=== PATIENT | male | born 1940 | race Caucasian/White ===

== ENCOUNTER 2020-06-12 07:06 | Day surgery (SDC) | payer MEDICARE, BC ==
[2020-06-06 10:16] LABS: BASOPHILS % (AUTO) 0.7 % (0-1); EOSINOPHILS # (AUTO) 0.1 X10'3 (0-0.9); EOSINOPHILS % (AUTO) 1.3 % (0-6); LYMPHOCYTES # (AUTO) 0.9 X10'3 (1.1-4.8); LYMPHOCYTES % (AUTO) 17.3 % (21-51); MEAN CORPUSCULAR HEMOGLOBIN 29.6 PG (27.0-31.0); MEAN CORPUSCULAR HGB CONC 32.7 g/dL (33.0-36.5); MEAN CORPUSCULAR VOLUME 90.4 FL (78-98); MEAN PLATELET VOLUME 7.7 FL (7.4-10.4); MONOCYTES # (AUTO) 0.7 X10'3 (0-0.9); MONOCYTES % (AUTO) 13.1 % (2-12); NEUTROPHILS # (AUTO) 3.5 X10'3 (1.8-7.7); NEUTROPHILS % (AUTO) 67.6 % (42-75); PRE OP HEMATOCRIT 38.8 % (42.0-52.0); PRE OP HEMOGLOBIN 12.7 g/dL (14.0-17.9); PRE OP PLATELET COUNT 171 X10'3 (140-440); RED BLOOD COUNT 4.29 X10'6 (4.70-6.10); RED CELL DISTRIBUTION WIDTH 17.6 % (11.5-14.5)
[2020-06-06 10:23] LABS: ALBUMIN 3.8 G/DL (3.4-5.0); ALKALINE PHOSPHATASE 132 IU/L (46-116); BLOOD UREA NITROGEN 33 MG/DL (7-18); CALCIUM 8.6 MG/DL (8.5-10.1); CHLORIDE 103 MMOL/L (99-107); CREATININE 1.27 MG/DL (0.60-1.10); PRE OP ALT 27 U/L (30-65); PRE OP ANION GAP 9 (8-16); PRE OP AST 29 U/L (10-37); PRE OP BILIRUB, TOTAL 0.9 MG/DL (0.0-1.0); PRE OP GLUCOSE 98 MG/DL (70-104); PRE OP SODIUM 139 MMOL/L (135-145); TOTAL CARBON DIOXIDE 26.9 MMOL/L (24-32); TOTAL PROTEIN 7.8 G/DL (6.4-8.2); eGFR 54 ML/MIN
[~2020-06-12] VITALS: Ht 180.3 cm; Wt 102.1 kg
[2020-06-12] VITALS (20 sets, daily range): BP systolic 105–146; BP diastolic 45–83
[~2020-06-12 07:06] MED LIST: ATOR20TA66 PO; BUPIVAcaine/PF 2.5 mg/ml (0.25%) 30ml vial ONE; DOCUMENT DATE & TIME OF BETA-BLOCKER PO ONE; FLO0.4C PO; HYDR25TA4 PO; METO-395 PO; TRAV2.5D6 RIGHTEYE; ceFAZolin 2gm in dextrose, iso 50 ML IV ONE; famotidine 20mg tablet PO ONE; ringers solution, lacted 1,000 ML IV SCH
[2020-06-12] MEDS ORDERED: ondansetron/PF 4mg/2ml inj IV PRN (09:55)
[2020-06-12] MEDS ORDERED: proCHLORperazine 10 MG/2 ml inj IV PRN (09:55)
[2020-06-12] MEDS ORDERED: ringers solution, lacted 1,000 ML IV SCH (09:55)
[2020-06-12] MEDS ORDERED: meperidine/PF 25mg/ml syringe IV PRN ×3 (09:55)
[2020-06-12] MEDS ORDERED: morphine 2 MG/ML inj. syringe IV PRN (09:55)
[2020-06-12] MEDS ORDERED: morphine 4 MG/ML inj SYRINge IV PRN (09:55)
[2020-06-12] MEDS ORDERED: fentaNYL /PF 50mcg/ml 5ml ampule ONE (12:01)
[2020-06-12] MEDS ORDERED: midazolam 2 mg/2 ml injection ONE (12:01)
[2020-06-12] MEDS ORDERED: propofol inj 20 ML IV ONE (12:04)
[2020-06-12] MEDS ORDERED: LIDOcaine 2% (20mg/ml) 5ml vial ONE (12:04)
[2020-06-12] MEDS ORDERED: rocuronium 10mg/ml inj IV ONE (12:28)
[2020-06-12] MEDS ORDERED: dexamethasone sod phosphate 10mg/ml inj ONE (12:28)
[2020-06-12] MEDS ORDERED: ondansetron/PF 4mg/2ml inj ONE (12:28)
[2020-06-12] MEDS ORDERED: desflurane 240ml liquid inh. IH ONE (12:28)
[2020-06-12] MEDS ORDERED: acetaminophen 1,000mg/100ml IV 100 ML IV ONE (14:00)
[2020-06-12] MEDS ORDERED: glycopyrrolate 0.2mg/ml inj ONE (14:01)
--- NOTE | 2020-06-12 14:16 | NUR ---
Received from OR via [facility], accompanied by Anesthesiologist DR BORGES and report given by Anesthesiologist. PT DROWSY W/ORAL AIRWAY, HR TACHY 140'S, (SEE ANESTHESIA RECORD), HR RATE A-FIB, AND PACED. ABDOMEN W/3 LAP SITES W/BANDAIDS CDI, PT AWAKE ORAL AIRWAY D/CD. VSS. PT NAUSEATED, ZOFRAN GIVEN W/IMPROVEMENT. Addendum: 06/12/20 at 1550 by Arti Smith RN Amended: Links added.
[2020-06-12] MEDS ORDERED: esmolol inj. 10 ML IV ONE (14:20)
--- NOTE | 2020-06-12 17:36 | NUR ---
HR HAS REMAINED STABLE ALONG W/BP AND RR/SA02, DISCUSSED W/DR BORGES AND PT IS ABLE TO BE D/CD TO HOME. PT ABLE TO AMBULATE W/SOME ASSISTANCE, STATES IS COMFORTABLE, D/C INSTRUCTIONS GIVEN AND GONE OVER W/PT AND PTS SON WHO VERBALIZE UNDERSTANDING. PT D/CD TO HOME VIA W/C TO PRIVATE VEHICLE W/O INCIDENCE. Addendum: 06/12/20 at 1801 by Arti Smith RN Amended: Links added.
== END 2020-06-12 17:36 | disposition home or self-care (01) ==
LOC: PAS 07:06
PROVIDERS: ATTEND Surgery
DX: K66.0 Peritoneal adhesions (postprocedural) (postinfection) (principal); I25.10 Atherosclerotic heart disease of native coronary artery without angina pectoris; H40.9 Unspecified glaucoma; I12.9 Hypertensive chronic kidney disease with stage 1 through stage 4 chronic kidney disease, or unspecified chronic kidney disease; N18.9 Chronic kidney disease, unspecified; N40.0 Benign prostatic hyperplasia without lower urinary tract symptoms; Z86.14 Personal history of Methicillin resistant Staphylococcus aureus infection; Z20.828 Contact with and (suspected) exposure to other viral communicable diseases; Z79.899 Other long term (current) drug therapy; Z79.82 Long term (current) use of aspirin; Z96.653 Presence of artificial knee joint, bilateral; Z98.890 Other specified postprocedural states; Z95.1 Presence of aortocoronary bypass graft; Z95.2 Presence of prosthetic heart valve; Z95.0 Presence of cardiac pacemaker
CPT/HCPCS: 36415; 49329; 80053; 85025; 87635; C1758; J0131; J1100; J2001; J2250; J2405; J2704; J3010; J3490; J7120; A4215; A4618